=== PATIENT | female | born 1970 | race African-American/Black ===

== ENCOUNTER 2021-11-06 08:53 | Emergency (ER) | payer OTHER ==
[~2021-11-06] VITALS: Ht 175.3 cm; Wt 110.0 kg
[2021-11-06 09:00] VITALS: BP 160/98
[2021-11-06 10:31] LABS: BASOPHILS % 0.5 % (0.0-2.0); EOSINOPHILS % 0.7 % (0.0-5.0); HEMATOCRIT. 42.2 % (36.0-48.0); LYMPHOCYTES % 24.9 % (20.0-50.0); MEAN CORPUSCULAR HEMOGLOBIN 28.9 pg (28.0-32.0); MEAN PLATELET VOLUME 9.2 fl (7.4-10.4); NEUTROPHILS % 65.9 % (40.0-76.0); PLATELET 221 x1000/uL (130-400); RED BLOOD CELL COUNT 4.86 mill/uL (4.2-5.4)
[2021-11-06 10:38] LABS: CHLORIDE 105 mEq/L (98-107)
[2021-11-06 10:49] LABS: CLARITY URINE CLEAR (CLEAR); COLOR URINE YELLOW (YELLOW); KETONES URINE NEGATIVE (NEGATIVE); LEUKOCYTE ESTERASE URINE NEGATIVE (NEGATIVE); NITRITE URINE NEGATIVE (NEGATIVE); OCCULT BLOOD URINE NEGATIVE (NEGATIVE); PROTEIN URINE NEGATIVE (NEGATIVE); SPECIFIC GRAVITY URINE 1.018 (1.005-1.030)
== END 2021-11-06 13:45 | disposition home or self-care (01) ==
LOC: ER 08:53
DX: R06.00 Dyspnea, unspecified (principal); R00.2 Palpitations; R20.2 Paresthesia of skin; F41.1 Generalized anxiety disorder; R06.4 Hyperventilation; Z85.9 Personal history of malignant neoplasm, unspecified
CPT/HCPCS: 36415; 71045; 80053; 81003; 82962; 85025; 93005; 99285